=== PATIENT | male | born 1950 | race African-American/Black ===

== ENCOUNTER 2020-08-15 02:46 | Inpatient (IN) | payer MEDICARE ==
[2020-08-15] MEDS ORDERED: Amiodarone 150 MG/3 ML VIAL ONE (03:00)
[2020-08-15] MEDS ORDERED: EPINEPHrine 1 MG/10 ML Abboject SYRINGE ONE (03:00)
[2020-08-15] MEDS ORDERED: Calcium Chloride 1 GM/10 ML Abboject SYRINGE ONE (03:00)
[2020-08-15] MEDS ORDERED: Sodium Bicarb 50 MEQ/50 ML Abboject 8.4% SYRINGE ONE (03:00)
[2020-08-15 03:13] LABS: Hemoglobin 11.7 g/dL (14.0-18.0); Mean Corpuscular HGB CONC 32.7 g/dL (32.0-36.0); Mean Corpuscular Hemoglobin 28.9 pg (27.0-31.0); Mean Corpuscular Volume 88.4 fL (78.0-98.0); RBC Distribution Width 13.6 % (11.5-14.5); Red Blood Cell (RBC) Count 4.06 mill/uL (4.70-6.10); White Blood Cell (WBC) Count 14.1 thou/uL (4.8-10.8)
[2020-08-15 03:16] LABS: INR-International Normal Ratio 1.1; PTT 29.6 sec (22.9-36.1); Prothrombin Time 14.9 sec (12.0-14.7)
[2020-08-15] MEDS ORDERED: Fentanyl 100 MCG/2 ML VIAL ONE (03:20)
[2020-08-15 03:27] LABS: #Basophils 0.1 thou/uL (0.0-0.2); #Eosinphils 0.1 thou/uL (0.0-0.7); #Lymphocytes 4.4 thou/uL (1.20-3.40); #Monocytes 1.2 thou/uL (0.11-0.59); #Neutrophils 8.2 thou/uL (1.40-6.50); %Basophils 0.7 % (0.0-1.0); %Eosinophils 0.6 % (0.0-10.0); %Lymphocytes 31.4 % (21.0-51.0); %Monocytes 8.8 % (0.0-10.0); %Neutrophils 58.5 % (42.0-75.0); Mean Platelet Volume 7.7 fL (7.4-10.4); Platelet Count 111 thou/uL (130-400); Platelet Morphology Comment Appears Decreased
[2020-08-15 03:29] LABS: ALT (SGPT) 389 U/L (8-55); AST (SGOT) 353 U/L (5-34); Albumin 3.3 g/dL (3.4-4.8); Alkaline Phosphatase 136 U/L (40-110); Anion Gap 26 mmol/L (10-20); BUN (Urea Nitrogen) 21 mg/dL (8.4-25.7); Bilirubin, Total 0.4 mg/dL (0.2-1.2); Calc. Creatinine Clearance 0 mL/min (70-130); Calcium 8.1 mg/dL (7.8-10.44); Carbon Dioxide 15 mmol/L (23-31); Chloride 100 mmol/L (98-107); Glucose 214 mg/dL (80-115); Potassium 3.5 mmol/L (3.5-5.1); Protein, Total 6.3 g/dL (5.8-8.1); Sodium 137 mmol/L (136-145)
[2020-08-15] MEDS ORDERED: Fentanyl CADD 100 ML IV SCH ×2 (03:30→07:15)
[2020-08-15] MEDS ORDERED: Norepinephrine 8 MG/0.9% NS 250 ML ONE (03:32)
[2020-08-15 03:35] LABS: Actual Bicarbonate (HCO3a) 21.1 mEq/L (22-28); Analyzer IN Cardio ER; CO2 Tension 54.9 mmHg (35.0-45.0); Carboxyhemoglobin (COHb) 0.2 gm% (0.0-3.0); Hemoglobin (Hb) 10.9 g/dL (14.0-18.0); O2 Tension (PaO2), arterial 133.2 mmHg (> 80.0); Potassium - ABG Lab 3.35 mmol/L (3.70-5.30)
[2020-08-15 03:36] LABS: ALV-art Gradient 511.175 mmHg (0-20); Puncture Site RBA
[2020-08-15 03:52] LABS: CKMB 1.6 ng/mL (0-6.6)
[2020-08-15 04:07] LABS: SARS-CoV-2 NAA Rapid Test Not Detected (NotDetected)
[2020-08-15] MEDS ORDERED: Piperacillin/Tazobactam 4.5 GM VIAL ONE (04:14)
[2020-08-15] MEDS ORDERED: Vancomycin 1 GM/200 ML BAG ONE (04:14)
[2020-08-15] MEDS ORDERED: VANCOMYCIN IVPB PRN (05:15)
[2020-08-15 05:30] LABS: Bacteria/HPF 3+ HPF (None Seen); Bilirubin Negative (Negative); Blood, Urine 2+ (Negative); Clarity Extra Turbid (Clear); Glucose, Urine (Dipstick) 200 mg/dL (Negative); Ketone, Urine Negative (Negative); Leukocyte Negative Leu/uL (Negative); Nitrite Negative (Negative); Protein, Urine (Dipstick) 600 mg/dL (Neg-Trace); RBC/HPF Greater than 50 HPF (0-3); Specific Gravity, Urine 1.022 (1.002-1.036); Squamous Epithelial 21-50 HPF (0-3); Urobilinogen Normal mg/dL (Less than 2); WBC/HPF Greater than 50 HPF (0-3); pH, Urine 7.5 (5.0-9.0)
[2020-08-15] MEDS ORDERED: Acetaminophen 325 MG/10.15 ML UDCUP PO PRN (06:13)
[2020-08-15] MEDS ORDERED: Electrolyte Replacement Protocol 1 EACH IVPB SCH (06:13)
[2020-08-15] MEDS ORDERED: Ventilator Sedation Protocol 1 EACH FS SCH (06:13)
[2020-08-15] MEDS ORDERED: Lactated Ringer's 1,000 ML IV SCH (06:15)
[2020-08-15 06:59] LABS: Hemoglobin 7.7 g/dL (14.0-18.0)
[2020-08-15] MEDS ORDERED: Hydrocortisone Sod Succ/PF 100 mg/2 ml Vial IVP SCH (07:00)
[2020-08-15 07:10] LABS: Lactic Acid 7.2 mmol/L (0.5-2.2); Troponin I 2.638 ng/mL (< 0.028)
[2020-08-15] MEDS ORDERED: Morphine 2 MG/ML VIAL SLOW IVP PRN (07:15)
[2020-08-15] MEDS ORDERED: DISCONTINUE PREVIOUS NARCOTIC PAIN MEDICATIONS AND BENZODIAZEPINES FS SCH (07:15)
[2020-08-15] MEDS ORDERED: Propofol 1,000 MG/100 ML VIAL IV PRN (07:15)
[2020-08-15] MEDS ORDERED: Lorazepam 2 MG/ML VIAL SLOW IVP PRN (07:15)
[2020-08-15] MEDS ORDERED: Propofol BOLUS 1,000 MG/100 ML VIAL IV PRN (07:15)
[2020-08-15] MEDS ORDERED: Fentanyl BOLUS 250 ML IVPB PRN (07:15)
[2020-08-15] MEDS: Norepinephrine 8 MG/0.9% NS 250 ML IVPB PRN ×4 (07:26→15:43)
[2020-08-15] MEDS: Piperacillin/Tazobactam 3.375 GM in Sodium Chloride 0.9% 100 ML IVPB SCH ×2 (07:40→11:43)
[2020-08-15 07:44] VITALS: BMI 24.5
[2020-08-15] MEDS ORDERED: Sodium Bicarb 50 MEQ/50 ML Abboject 8.4% SYRINGE IVP SCH (08:30)
[2020-08-15] MEDS ORDERED: Pantoprazole 40 MG VIAL IVP SCH ×2 (09:00→11:45)
[2020-08-15] MEDS ORDERED: Famotidine/PF 20 mg/2ml Vial SLOW IVP SCH (09:00)
[2020-08-15 09:44] LABS: Troponin I 9.417 ng/mL (< 0.028)
[2020-08-15] MEDS ORDERED: Phenylephrine 40 MG in Sodium Chloride 0.9% 250 ML 250 ML IVPB SCH (09:45)
[2020-08-15] MEDS ORDERED: Phenylephrine 40 MG/NS 250 ML 10 MG in Premix Bag 1 BAG IVPB SCH (10:15)
[2020-08-15] MEDS ORDERED: Sodium Bicarbonate 150 MEQ in Dextrose 5% in Water 1,000 ML IV SCH ×2 (10:30→11:18)
[2020-08-15 10:44] LABS: Amphetamine Not Detected (NotDetected); Barbiturates Screen Not Detected (NotDetected); Benzodiazepine Screen Not Detected (NotDetected); Cocaine Metabolite Screen Not Detected (NotDetected); Medtox Reader # READER 4; Methadone Not Detected (NotDetected); Methamphetamine Not Detected (NotDetected); Opiate Screen Not Detected (NotDetected); Oxycodone Screen Not Detected (NotDetected); Phencyclidine (PCP) Not Detected (NotDetected); THC/Cannabinoid Screen Not Detected (NotDetected); Tricyclic Screen Not Detected (NotDetected)
[2020-08-15 10:45] LABS: Medtox Control Line Valid? VALID (VALID)
[2020-08-15] MEDS: Phenylephrine 40 MG in Sodium Chloride 0.9% 250 ML 250 ML IVPB SCH ×2 (10:47→13:50)
[2020-08-15] MEDS ORDERED: Iopamidol-370 76% 500 ML 1 ML ONE (11:43)
[2020-08-15 12:04] LABS: Hemoglobin 9.6 g/dL (14.0-18.0); Mean Corpuscular HGB CONC 33.8 g/dL (32.0-36.0); Mean Corpuscular Hemoglobin 30.5 pg (27.0-31.0); Mean Corpuscular Volume 90.4 fL (78.0-98.0); Mean Platelet Volume 7.2 fL (7.4-10.4); Platelet Count 85 thou/uL (130-400); RBC Distribution Width 13.5 % (11.5-14.5); Red Blood Cell (RBC) Count 3.14 mill/uL (4.70-6.10); White Blood Cell (WBC) Count 21.5 thou/uL (4.8-10.8)
[2020-08-15 12:43] LABS: Actual Bicarbonate (HCO3a) 18.9 mEq/L (22-28); Base Excess (BEa) -5.5 mEq/L (-2.0 to +3.0); CO2 Tension 33.2 mmHg (35.0-45.0); Calcium, Ionized (arterial) 0.95 mmol/L (1.12-1.30); Carboxyhemoglobin (COHb) 0.3 gm% (0.0-3.0); Hemoglobin (Hb) 10.8 g/dL (14.0-18.0); O2 Tension (PaO2), arterial 427.5 mmHg (> 80.0); Potassium - ABG Lab 3.87 mmol/L (3.70-5.30); pH, Arterial 7.37 (7.35-7.45)
[2020-08-15] MEDS ORDERED: Potassium Chloride 40 MEQ in Sodium Chloride 0.9% 250 ML 250 ML IV SCH (12:45)
[2020-08-15] MEDS ORDERED: Pantoprazole 80 MG, Admixture Fee 1 EACH in Sodium Chloride 0.9% 100 ML IVPB SCH (12:45)
[2020-08-15 12:52] LABS: Puncture Site Arterial Line
[2020-08-15 13:00] LABS: Anion Gap 19 mmol/L (10-20); BUN (Urea Nitrogen) 28 mg/dL (8.4-25.7); Calc. Creatinine Clearance 42 mL/min (70-130); Calcium 6.6 mg/dL (7.8-10.44); Carbon Dioxide 21 mmol/L (23-31); Chloride 108 mmol/L (98-107); Glucose 223 mg/dL (80-115); Sodium 144 mmol/L (136-145)
[2020-08-15] MEDS ORDERED: Dextrose 50% Abboject 50 ML SYRINGE SLOW IVP PRN (13:55)
[2020-08-15] MEDS ORDERED: HumaLOG 300 UNITS/3 ML VIAL SC PRN (13:55)
[2020-08-15] MEDS ORDERED: Dextrose 5% in Water 1,000 ML IV PRN (13:55)
[2020-08-15 15:51] LABS: Troponin I 8.797 ng/mL (< 0.028)
[2020-08-15 16:15] LABS: Actual Bicarbonate (HCO3a) 20.5 mEq/L (22-28); Base Excess (BEa) -3.9 mEq/L (-2.0 to +3.0); Calcium, Ionized (arterial) 0.94 mmol/L (1.12-1.30); Carboxyhemoglobin (COHb) 0.1 gm% (0.0-3.0); Hemoglobin (Hb) 11.4 g/dL (14.0-18.0); O2 Tension (PaO2), arterial 239.8 mmHg (> 80.0); Potassium - ABG Lab 4.06 mmol/L (3.70-5.30); pH, Arterial 7.39 (7.35-7.45)
[2020-08-15 16:20] LABS: Puncture Site Arterial Line
[2020-08-15 17:17] LABS: Mean Corpuscular HGB CONC 34.5 g/dL (32.0-36.0); Mean Corpuscular Hemoglobin 30.5 pg (27.0-31.0); Mean Corpuscular Volume 88.3 fL (78.0-98.0); Mean Platelet Volume 7.9 fL (7.4-10.4); Platelet Count 86 thou/uL (130-400); RBC Distribution Width 13.1 % (11.5-14.5); Red Blood Cell (RBC) Count 3.61 mill/uL (4.70-6.10); White Blood Cell (WBC) Count 22.7 thou/uL (4.8-10.8)
[2020-08-15 17:23] LABS: Hemoglobin 10.8 g/dL (14.0-18.0); Platelet Count 89 thou/uL (130-400)
[2020-08-15 17:42] LABS: Glucose 215 mg/dL (80-115)
[2020-08-15 17:54] LABS: Band 32 % (5-11); Lymphocytes 6 % (21-51); MDiff Complete? YES; Monocytes 2 % (0-10); Myelocyte 1 % (0-0); Neutrophil 57 % (42-75); Platelet Morphology Comment Appears Decreased; RBC Morphology Normal; Reactive Lymphocytes 2 % (0-10)
[2020-08-15 17:58] LABS: ALT (SGPT) 1780 U/L (8-55); AST (SGOT) 1785 U/L (5-34); Albumin 2.3 g/dL (3.4-4.8); Alkaline Phosphatase 116 U/L (40-110); Anion Gap 17 mmol/L (10-20); BUN (Urea Nitrogen) 30 mg/dL (8.4-25.7); Bilirubin, Total 0.8 mg/dL (0.2-1.2); Calc. Creatinine Clearance 39 mL/min (70-130); Calcium 6.7 mg/dL (7.8-10.44); Carbon Dioxide 20 mmol/L (23-31); Chloride 108 mmol/L (98-107); Globulin 2.2 g/dL (2.4-3.5); Magnesium 1.7 mg/dL (1.6-2.6); Potassium 4.3 mmol/L (3.5-5.1); Protein, Total 4.5 g/dL (5.8-8.1); Sodium 141 mmol/L (136-145)
[2020-08-15 18:14] VITALS: TEMP 98
[2020-08-15 18:27] VITALS: BP 106/70
[2020-08-15] MEDS ORDERED: Piperacillin/Tazobactam 2.25 GM in Sodium Chloride 0.9% 100 ML IVPB SCH (22:00)
[2020-08-16] MEDS ORDERED: VANCOMYCIN 1.25 GM/250 ML BAG 1.25 GM in Premix Bag 1 BAG IVPB SCH (05:00)
== END 2020-08-15 19:15 | disposition short-term general hospital (02) | DRG 208 ==
LOC: ERS 02:46 → IMCU/EMU 03:57
PROVIDERS: ADMIT Student in an Organized Health Care Education/Training Program; ATTEND Student in an Organized Health Care Education/Training Program
PROC: 06HY33Z Insertion of Infusion Device into Lower Vein, Percutaneous Approach (ICD-10-PCS; principal; 2020-08-15)
PROC: 3E033XZ Introduction of Vasopressor into Peripheral Vein, Percutaneous Approach (ICD-10-PCS; 2020-08-15)
PROC: 30233N1 Transfusion of Nonautologous Red Blood Cells into Peripheral Vein, Percutaneous Approach (ICD-10-PCS; 2020-08-15)
PROC: 0BH18EZ Insertion of Endotracheal Airway into Trachea, Via Natural or Artificial Opening Endoscopic (ICD-10-PCS; 2020-08-15)
PROC: 5A1935Z Respiratory Ventilation, Less than 24 Consecutive Hours (ICD-10-PCS; 2020-08-15)
PROC: 5A12012 Performance of Cardiac Output, Single, Manual (ICD-10-PCS; 2020-08-15)
PROC: 04HY32Z Insertion of Monitoring Device into Lower Artery, Percutaneous Approach (ICD-10-PCS; 2020-08-15)
DX: I26.99 Other pulmonary embolism without acute cor pulmonale (principal); J96.01 Acute respiratory failure with hypoxia; N17.0 Acute kidney failure with tubular necrosis; R57.0 Cardiogenic shock; K66.1 Hemoperitoneum; I46.2 Cardiac arrest due to underlying cardiac condition; K72.01 Acute and subacute hepatic failure with coma; E87.2 Acidosis; S36.113A Laceration of liver, unspecified degree, initial encounter; D62 Acute posthemorrhagic anemia; K92.2 Gastrointestinal hemorrhage, unspecified; I26.02 Saddle embolus of pulmonary artery with acute cor pulmonale; Z20.822 Contact with and (suspected) exposure to COVID-19; I12.9 Hypertensive chronic kidney disease with stage 1 through stage 4 chronic kidney disease, or unspecified chronic kidney disease; N18.30 Chronic kidney disease, stage 3 unspecified; D63.1 Anemia in chronic kidney disease; E78.5 Hyperlipidemia, unspecified; R73.03 Prediabetes; M19.90 Unspecified osteoarthritis, unspecified site; M10.9 Gout, unspecified; I08.3 Combined rheumatic disorders of mitral, aortic and tricuspid valves; I45.10 Unspecified right bundle-branch block; Z79.82 Long term (current) use of aspirin; Z79.899 Other long term (current) drug therapy; Z86.73 Personal history of transient ischemic attack (TIA), and cerebral infarction without residual deficits; Z91.81 History of falling; I95.9 Hypotension, unspecified; Z83.3 Family history of diabetes mellitus; Z82.49 Family history of ischemic heart disease and other diseases of the circulatory system
CPT/HCPCS: 0240U; 31500; 36415; 36430; 36556; 36600; 51702; 70450; 71045; 71275; 74177; 80053; 80306; 81003; 81015; 82553; 82805; 83605; 83735; 83880; 84145; 84484; 85025; 85610; 85730; 86850; 86870; 86900; 86901; 86905; 86922; 87040; 87086; 92950; 93005; 93010; 93306; 94002; 94003; 94760; 96361; 96365; 96366; 96367; 96368; 96375; 96376; C9113; J0171; J0282; J1720; J2370; J2543; J3010; J3370; J3490; J7050; J7070; P9016; Q9967

== ENCOUNTER 2020-08-28 15:28 | Emergency (ER) | payer MEDICARE ==
[2020-08-28] MEDS ORDERED: Gabapentin 300 MG CAP PO SCH (17:30)
== END 2020-08-28 18:42 | disposition home or self-care (01) ==
LOC: ERS 15:28
DX: R20.2 Paresthesia of skin (principal); I25.2 Old myocardial infarction; I10 Essential (primary) hypertension; Z86.73 Personal history of transient ischemic attack (TIA), and cerebral infarction without residual deficits; Z79.899 Other long term (current) drug therapy
CPT/HCPCS: 36415; 80053; 85025; 99284